=== PATIENT | male | born 1960 | race Caucasian/White ===

== ENCOUNTER 2017-12-12 13:15 | Emergency (ER) | payer BC ==
[~2017-12-12] VITALS: Ht 180.3 cm; Wt 72.6 kg
[2017-12-12] MEDS ORDERED: Bacitracin Oint UD TOPIC ONE (13:45)
[2017-12-12] MEDS ORDERED: Tetanus/Diptheria/Pertussis Vaccine 0.5ml Syr IM ONE (13:45)
--- NOTE | 2017-12-12 13:58 | Emergency Room Report ---
History of Present Illness General Chief Complaint: Multiple Trauma/Fall Source: Patient Present Illness HPI 57-year-old male patient presents ER complaining of fall about one hour ago. Patient reports that he was helping to move boxes when he fell down while bending over. Reports he had a history of a stroke 22 months ago, states that he still has some right-sided weakness on that side, does not know what type of stroke. Denies loss of consciousness. Denies vomiting or vision changes. reports takes aspirin and no other blood thinner medications. Reports is moving to [place] on Saturday and is flying there. Did not know tetanus vaccinations status. Also reports fall onto hands, states multiple abrasions from fall into [place]. Reports right wrist pain and swelling. Reports right-hand dominant. Denies fever, chest pain, shortness of breath. Allergies: Coded Allergies: No Known Allergies (Unverified , 12/12/17) Patient History Past Medical History: see triage record Reviewed Nursing Documentation: PMH: Agreed; PSxH: Agreed Nursing Documentation-PMH Past Medical History: No History, Except For Hx Cerebrovascular Accident: Yes - 02/01/2015 Review of Systems All Other Systems: negative except mentioned in HPI Physical Exam Vital Signs Date Time Temp Pulse Resp B/P (MAP) Pulse Ox O2 Delivery O2 Flow Rate FiO2 12/12/17 13:27 98.1 64 20 109/73 95 Room Air Sp02 EP Interpretation: reviewed, normal General Appearance: well appearing, no apparent distress, alert, GCS 15, non- toxic Head: normocephalic, atraumatic, other - negative Bridges sign, negative Raccoon eyes; 2cm contusion on right side of chin Eyes: bilateral eye normal inspection, bilateral eye PERRL ENT: hearing grossly normal, normal pharynx, no angioedema, normal voice, TMs + canals normal, uvula midline, moist mucus membranes, other Neck: full range of motion Respiratory: lungs clear, normal breath sounds, no rhonchi, no respiratory distress, no accessory muscle use, no wheezing, speaking full sentences Cardiovascular #1: regular rate, rhythm, no edema Gastrointestinal: non tender, soft, no mass, non-distended, no guarding, no rebound Musculoskeletal: back normal, digits/nails normal, gait/station normal, normal range of motion, non-tender, swelling - ulnar side of right wrist, other - NVI, no ecchymosis, no snuffbox tenderness, no deformity, tender - ulnar aspect of right wrist Neurologic: alert, oriented x3, responsive, doctor of chiropractic III-XII nml as tested, motor strength/tone normal, sensory intact, cerebellar normal, normal gait, speech normal Psychiatric: mood/affect normal Skin: abrasions - multiple abrasions noted on palms and wrists bilaterally, no surrounding erythema or edema, no fluctuance or induration, no active bleeding or drainage, no red streaking, laceration - multiple 1 cm lacerations on right side of scalp, dried blood noted, no active bleeding, no surrounding erythema or edema Lymphatic: no adenopathy Medical Decision Making PA Attestation Dr. Rush is my supervising Physician whom patient management has been discussed with. Diagnostic Impression: Primary Impression: Head injury Additional Impressions: Abrasion Wrist contusion Cutaneous sporotrichosis ER Course Pt. presents to the ED c/o head injury and wrist pain s/p fall, multiple abrasion from fall into [employer]. Ddx considered but are not limited to fracture, sprain, strain, contusion, dislocation, ICH, skull fracture, jaw dislocation or fracture, cellulitis, abrasion, abscess, sporotrichosis, concussion. No erythema, no warmth to touch, no fever, nontoxic appearing, low suspicion for septic joint. Soft compartments, no pulselessness, no pallor, no paresthesias, low suspicion for compartment syndrome at this time. Cranial nerves intact as tested, no dizziness or drop event, low suspicion for cerebrovascular event, does not require additional stroke workup at this time. Vital signs: are WNL, pt. is afebrile ER COURSE Provided with pain medication. multiple superficial abrasions noted on face, cleaned irrigated with copious saline and bacitracin applied, does not require sutures or brittany. No swelling or edema, suspicion for cellulitis or hematoma. due to patient falling into [place] and sustaining abrasions, will provide patient with treatment, for possible sporotrichosis infection, no lymphadenopathy or red streaking, likely localized and cutaneous. Abrasions cleaned and dressed. TDAP provided. CT head shows no acute disease or mass effect. left thalamic old lacunar infarcts versus prominent perivascular space and mild age-related. Discuss results with the patient. Provided patient with copy of results. Instructed patient to followup with PCP and discuss results of report with patient, discuss need for further treatment and referral. An X-ray of the right wrist shows no acute disease per the preliminary reading. Likely contusion causing pain symptoms. Discuss results with the patient. Provided patient with copy of results. Instructed patient to followup with PCP and discuss results of report with patient, discuss need for further treatment and referral. Splint was applied to the right wrist and was checked afterwards by me showing good alignment and support with distal neurovascular functioning intact. Patient instructed on RICE method: rest, ice, compression, elevation. Patient instructed on rest, ice and heat. Patient instructed to be WBAT Contact information for orthopedic urgent care provided, follow-up with urgent care if unable to followup with primary care provider and get referral to naval architect specialist. Followup with primary care provider. Discuss referral to ortho/pain management/ PT as needed. Discuss further imaging with MRI/CT as needed. ER precautions given. DISCHARGE: At this time pt is stable for d/c to home. Patient is resting comfortably, in no acute distress, nontoxic appearing, talking without difficulty. Patient to take medications as instructed Will provide with patient care instructions and any necessary prescriptions. Care plan and follow-up instructions provided. Patient instructed to follow-up with primary care provider in 3 - 5 days. Patient questions asked and answered. Patient reports understanding and agreement to treatment plan. ER precautions given. Patient instructed to return to ER immediately for any new or worsening of symptoms including but not limited to increasing SOB, persistent fever, chest pain, intractable vomiting. - Please note that this Emergency Department Report was dictated using [employer] service technician technology software, occasionally this can lead to erroneous entry secondary to interpretation by the dictation equipment. Other X-Ray Diagnostic Results Other X-Ray Diagnostic Results : X-Ray ordered: right wrist # of Views/Limited Vs Complete: 3 View Indication: Pain EP Interpretation: Yes PA Xray: Interpretation reviewed, by supervising MD, and agrees with findings. Interpretation: no dislocation, no soft tissue swelling, no fractures Impression: No acute disease [facility] [employer] Jaya [address] PA-C CT/MRI/US Diagnostic Results CT/MRI/US Diagnostic Results : Imaging Test Ordered: CT head Impression Impression: Negative for acute intracranial bleed or mass effect. Mild age-related frontal and parietal volume loss Left thalamic old lacunar infarct versus prominent perivascular space Last Vital Signs Date Time Temp Pulse Resp B/P (MAP) Pulse Ox O2 Delivery O2 Flow Rate FiO2 12/12/17 13:27 98.1 64 20 109/73 95 Room Air Status: improved Disposition: HOME, SELF-CARE Condition: Stable Scripts Itraconazole (ONMEL) 200 Mg Tablet 200 MG PO DAILY for 21 Days, #21 TAB Prov: Dante Way 12/12/17 Acetaminophen* (TYLENOL EXTRA STRENGTH*) 500 Mg Tablet 500 MG ORAL Q8H PRN for Prn Headache/Temp > 101, #30 TAB 0 Refills Prov: Dante Way 12/12/17 Bacitracin/Polymyxin B Sulfate (BACITRACIN-POLYMYXIN OINTMENT) 28.35 Gm Oint...g. 1 APPLIC TP BID, #28 GM Prov: Dante Way 12/12/17 Patient Instructions: Abrasion, [id number], Head Injury, Adult, [id number] , Wrist Pain, [id number] Additional Instructions: Patient instructed to follow up with primary care provider and discuss further referral to orthopedics/physical therapy/pain management as needed. If unable to followup with PCP, followup with orthopedic urgent care in 5-7 days , call to schedule appointment. Discuss results of CT head with PCP. Patient instructed on RICE method: rest, ice, compression, elevation. Patient instructed to WBAT. Keep wounds clean and dry, apply bacitracin to affected areas. Take medications as directed. Patient questions asked and answered. ER precautions given, patient instructed to return to ER immediately for any new or worsening of symptoms. [facility] [address] [facility] [address] [facility], [address] [email or web address] [address] Dec 12, 2017 13:58
--- NOTE | 2017-12-12 14:18 | Diagnostic Imaging Report ---
Indications: Fall with head trauma about one hour ago, history of aspiration and blood thinner use Technique: Spiral acquisitions obtained through the brain. Angled axial and coronal 5 x 5 mm slices were reconstructed. Total dose length product 1372.57 mGycm. CTDI vol(s) 70.38 mGy. Dose reduction achieved using automated exposure control Comparison: None. Findings: There is mild age-related prominence of the frontal and parietal extra axial CSF spaces. Old lacunar infarct versus prominent perivascular space is seen within the left thalamus. Normal malik-white differentiation. No acute intracranial hemorrhage or edema, mass effect, nor midline shift. Intact calvarium. Impression: Negative for acute intracranial bleed or mass effect. Mild age-related frontal and parietal volume loss Left thalamic old lacunar infarct versus prominent perivascular space The CT scanner at [facility] is accredited by the [employer] and the scans are performed using protocols designed to limit radiation exposure to as low as reasonably achievable to attain images of sufficient resolution adequate for diagnostic evaluation.
--- NOTE | 2017-12-12 14:19 | Diagnostic Imaging Report ---
Clinical Indication:Wrist pain, status post fall one hour ago Technique: 3 views of the right wrist Comparison: None Findings: No acute fractures. No dislocations. Joint spaces are observed. Bony alignment is normal Impression: Negative
[2017-12-12] MEDS ORDERED: Hydrogen Peroxide 473ml Bottle TOPIC ONE ×2 (14:24→14:30)
[2017-12-12 14:35] VITALS: BP 101/66
[2017-12-12 14:40] VITALS: BP 101/66
[2017-12-12] MEDS ORDERED: BACITRACIN-P28.35 GM TP (14:55)
[2017-12-12] MEDS ORDERED: TYLENOL EXTRA500 MG ORAL (14:55)
[2017-12-12] MEDS ORDERED: ONMEL200 MG PO (14:55)
== END 2017-12-12 14:40 | disposition home or self-care (01) ==
LOC: EMR 13:34
DX: S00.83XA Contusion of other part of head, initial encounter (principal); S60.512A Abrasion of left hand, initial encounter; S60.511A Abrasion of right hand, initial encounter; S60.812A Abrasion of left wrist, initial encounter; S60.811A Abrasion of right wrist, initial encounter; S00.81XA Abrasion of other part of head, initial encounter; S01.01XA Laceration without foreign body of scalp, initial encounter; W19.XXXA Unspecified fall, initial encounter; Y92.9 Unspecified place or not applicable; B42.89 Other forms of sporotrichosis; Z86.73 Personal history of transient ischemic attack (TIA), and cerebral infarction without residual deficits; Z23 Encounter for immunization
CPT/HCPCS: 29125; 70450; 90471; 90715; 99284